=== PATIENT | male | born 1945 | race Two or more races ===

== ENCOUNTER → 2018-03-18 | Emergency (ER) | payer OTHER ==
[~2018-03-18] VITALS: Ht 180.3 cm; Wt 97.5 kg
[~2018-03-18] MED LIST: AMITRIPTYLINE H10 MG PO; CELECOXIB100 MG PO; CIPRO500 MG PO; DICLOFENAC SODI50 MG PO; GABAPENTIN600 MG PO; MEDROLPACK PO; NORFLEX100MG PO; NORVIR100 MG; ODEFSEY TABLET1 EACH; ORPH100T PO; PEPCID20 MG PO; PYRIDIUM100 MG PO; RAYATAZ; SKELAXIN800 MG PO; TAMS0.4C PO; TRAMADOL HCL-AP1 TAB PO; TRAMADOL HCL50 MG; TRUVADA TABLET1 TAB; ULTRACET PO
== END | disposition home or self-care (01) ==
LOC: ER 21:27
DX: S00.01XA Abrasion of scalp, initial encounter (principal); S33.5XXA Sprain of ligaments of lumbar spine, initial encounter; S13.8XXA Sprain of joints and ligaments of other parts of neck, initial encounter; S29.8XXA Other specified injuries of thorax, initial encounter; W18.09XA Striking against other object with subsequent fall, initial encounter; Y93.89 Activity, other specified; Y92.26 Movie house or cinema as the place of occurrence of the external cause; Y99.8 Other external cause status

== ENCOUNTER 2021-06-23 08:54 | Emergency (ER) | payer OTHER ==
[~2021-06-23] VITALS: Ht 180.3 cm; Wt 97.5 kg
== END 2021-06-23 10:17 | disposition home or self-care (01) ==
LOC: ER 08:54
DX: N40.0 Benign prostatic hyperplasia without lower urinary tract symptoms (principal); R11.0 Nausea

== ENCOUNTER 2023-04-03 16:56 | Emergency (ER) | payer OTHER ==
[~2023-04-03] VITALS: Ht 180.3 cm; Wt 97.5 kg
[2023-04-03 21:09] LABS: HEMATOCRIT 42.5 % (39.0-48.0); HEMOGLOBIN 14.7 g/dL (13-16.00); MEAN CELL VOLUME 99.2 fL (80.0-100.00); MEAN CORPUSCULAR HEMOGLOBIN 34.3 pg (27.00-32.0); MEAN CORPUSCULAR HGB CONC 34.6 g/dl (32.0-36.0); PLATELET COUNT 250 K/uL (150-450); RED BLOOD COUNT 4.29 M/uL (4.00-6.00); RED CELL DISTRIBUTION WIDTH 13.5 % (11.5-14.5)
[2023-04-03 21:09] LABS: PH,URINE 6.5 (5.0-8.0); URINE APPEARANCE Clear; URINE BILIRRUBIN Negative (NEGATIVE); URINE BLOOD Negative; URINE COLOR Yellow; URINE GLUCOSE Negative (NEGATIVE); URINE LEUKOCYTE Negative; URINE NITRATE Negative; URINE PROTEIN Negative (NEGATIVE); URINE UROBILINOGEN 0.2 E.U./dl
[2023-04-03 21:12] LABS: URINE RBC 2.1 uL (0.0-20.8)
[2023-04-03 21:16] LABS: URINE BACTERIA 2.5 uL (0.0-1933); URINE EPITHELIAL CELLS 0.1 uL (0.0-38.8); URINE WBC 0.9 uL (0.0-23.2)
[2023-04-03 21:44] LABS: ALBUMIN 3.8 gm/dL (3.4-5.0); BILIRUBIN TOTAL 0.34 mg/dL (0.3-1.2); CALCIUM 9.5 mg/dL (8.5-10.1); CREATININE SERUM 1.11 mg/dL (0.70-1.30); GFR 64.41; GLOBULINA 3.9 G/DL (2.4-3.5); POTASSIUM 4.3 mEq/L (3.5-5.1); TOTAL PROTEIN 7.7 gm/dL (6.4-8.2)
== END 2023-04-04 01:50 | disposition left against medical advice (07) ==
LOC: ER 16:57
PROVIDERS: Emergency Medicine
DX: R51.9 Headache, unspecified (principal); B20 Human immunodeficiency virus [HIV] disease; G62.89 Other specified polyneuropathies